=== PATIENT | female | born 1975 | race Caucasian/White ===

== ENCOUNTER → 2019-09-19 14:51 | Outpatient (CLI) | payer OTHER, SELFPAY ==
--- NOTE | 2019-09-19 15:05 | XR_ITS ---
PROCEDURE: XR HIP RT 2-3V W/PELVIS CLINICAL INDICATION: BILAT HIP PAIN Right hip pain COMPARISON: No exams were available for comparison FINDINGS: No fracture or dislocation is evident. No significant degenerative change. No lytic or blastic change. Unremarkable soft tissues. IMPRESSION: Negative right hip Dictated by: Jeff Garcia MD 09/19/2019 15:32 Electronically signed by eJff Garcia MD in [place] 09/19/2019 15:32
--- NOTE | 2019-09-19 15:05 | XR_ITS ---
PROCEDURE: XR HIP LT 2-3V W/PELVIS CLINICAL INDICATION: BILAT HIP PAIN Left hip pain COMPARISON: No exams were available for comparison FINDINGS: No fracture or dislocation is evident. No significant degenerative change. No lytic or blastic change. Unremarkable soft tissues. IMPRESSION: Negative left hip Dictated by: Jeff Garcia MD 09/19/2019 15:47 Electronically signed by Jeff Garcia MD in [place] 09/19/2019 15:47
== END ==
PROVIDERS: PCP Internal Medicine Adolescent Medicine; Visit Provider Internal Medicine Adolescent Medicine
DX: M25.552 Pain in left hip (principal); M25.551 Pain in right hip
CPT/HCPCS: 73502

== ENCOUNTER → 2019-09-21 11:46 | Outpatient (CLI) | payer OTHER, SELFPAY ==
[2019-09-21 12:08] LABS: Basophils % 0.4 % (0.1-2.0); Eosinophils # 0.2 K/mm3 (0.0-0.4); Eosinophils % 2.8 % (0.1-12.0); Hematocrit 43.4 % (37.0-47.0); Hemoglobin 13.6 g/dL (12.2-16.2); Lymphocytes # 1.7 K/mm3 (0.7-4.5); Lymphocytes % 21.2 % (10-50); Mean Corpuscular HGB Conc 31.2 g/dL (31.8-35.4); Mean Corpuscular Hemoglobin 29.3 pg (27.0-31.2); Mean Corpuscular Volume 93.9 fl (81-99); Mean Platelet Volume 8.5 fl (7.4-10.4); Monocytes # 0.4 K/mm3 (0.1-1.0); Monocytes % 5.5 % (1.7-9.3); Neutrophils # 5.5 K/mm3 (1.8-7.8); Neutrophils % 70.2 % (37.0-80.0); Platelet Count 246 K/mm3 (142-424); Red Blood Count 4.63 M/mm3 (4.20-5.40); Red Cell Distribution Width 13.4 % (11.5-17.5); White Blood Count 7.8 K/mm3 (4.8-10.8)
[2019-09-21 12:27] LABS: Alanine Aminotransferase 16 U/L (12-78); Albumin Level 3.7 gm/dL (3.4-5.0); Albumin/Globulin Ratio 1.2 (1.1-1.8); Alkaline Phosphatase 80 U/L (46-116); Anion Gap 11.2 mEq/L (5-15); Aspartate Amino Transferase 17 U/L (15-37); Bilirubin,Total 0.6 mg/dL (0.2-1.0); Blood Urea Nitrogen 6 mg/dL (7-18); Calcium 8.6 mg/dL (8.5-10.1); Carbon Dioxide 28 mmol/L (21.0-32.0); Chloride 105 mmol/L (98-107); Chol/HDL Ratio 2.2 (1-3.5); Cholesterol 145 mg/dL (140-200); Creatinine,Serum 0.77 mg/dL (0.55-1.02); Estimated Glomerular Filt Rate 83 ml/min (>60); GFR (African American) 100 ML/MIN (>60); Glucose 93 mg/dL (74-106); HDL Cholesterol 67 mg/dL (29-89); LDL Cholesterol 66 mg/dL (0-130); Potassium 4.2 mmoL/L (3.5-5.1); Sodium 140 mmol/L (136-145); Thyroid Stimulating Hormone 0.62 uIU/ml (0.358-3.740); Total Protein,Serum 6.7 gm/dL (6.4-8.2); Triglycerides 59 mg/dL (30-200); VLDL Cholesterol 12 mg/dL (0-40)
[2019-09-21 12:34] LABS: Erythrocyte Sedimentation Rate 7 mm/hr (0-20)
[2019-09-26 12:08] LABS: Anti-Centromere B Antibodies <0.2 AI (0.0-0.9); Anti-Jo-1 <0.2 AI (0.0-0.9); Anti-Smith Antibody <0.2 AI (0.0-0.9); Antichromatin Antibodies <0.2 AI (0.0-0.9); Antiscleroderma-70 Antibodies <0.2 AI (0.0-0.9); RNP Antibodies 0.3 AI (0.0-0.9); Sjogren's Anti-SS-A <0.2 AI (0.0-0.9); Sjogren's Anti-SS-B <0.2 AI (0.0-0.9)
[2019-09-28 17:36] LABS: Anti-DNA (DS) Ab Qn <1 IU/mL (0-9)
== END ==
PROVIDERS: Visit Provider Internal Medicine Adolescent Medicine
DX: Z00.00 Encounter for general adult medical examination without abnormal findings (principal); M25.552 Pain in left hip; M25.551 Pain in right hip
CPT/HCPCS: 36415; 80053; 80061; 84443; 85025; 85651; 86038; 86225; 86235

== ENCOUNTER → 2020-06-15 10:57 | Outpatient (CLI) | payer OTHER, SELFPAY | PROVIDERS: PCP Internal Medicine Adolescent Medicine; Visit Provider Internal Medicine Adolescent Medicine | DX: Z03.818 Encounter for observation for suspected exposure to other biological agents ruled out (principal) | CPT/HCPCS: U0003 ==

== ENCOUNTER → 2020-08-08 15:40 | Outpatient (CLI) | payer OTHER, SELFPAY ==
[2020-08-08 16:20] LABS: Basophils # 0.1 K/mm3 (0-0.2); Basophils % 0.6 % (0.1-2.0); Eosinophils # 0.3 K/mm3 (0.0-0.4); Eosinophils % 3.6 % (0.1-12.0); Hemoglobin 14.7 g/dL (12.2-16.2); Lymphocytes # 2.1 K/mm3 (0.7-4.5); Lymphocytes % 24.8 % (10-50); Mean Corpuscular HGB Conc 31.9 g/dL (31.8-35.4); Mean Corpuscular Hemoglobin 29.9 pg (27.0-31.2); Mean Corpuscular Volume 93.7 fl (81-99); Mean Platelet Volume 8.1 fl (7.4-10.4); Monocytes # 0.4 K/mm3 (0.1-1.0); Neutrophils # 5.6 K/mm3 (1.8-7.8); Platelet Count 245 K/mm3 (142-424); Red Blood Count 4.91 M/mm3 (4.20-5.40); Red Cell Distribution Width 13.5 % (11.5-17.5); White Blood Count 8.5 K/mm3 (4.8-10.8)
[2020-08-08 17:17] LABS: Alanine Aminotransferase 16 U/L (12-78); Albumin Level 4.2 g/dl (3.5-5.0); Albumin/Globulin Ratio 1.6 (1.1-1.8); Alkaline Phosphatase 75 U/L (38-126); Anion Gap 9.1 mEq/L (5-15); Aspartate Amino Transferase 24 U/L (14-36); Bilirubin,Total 0.7 mg/dl (0.2-1.3); Blood Urea Nitrogen 10 mg/dl (7-17); Calcium 9.3 mg/dl (8.4-10.2); Carbon Dioxide 28 mmol/L (22.0-30.0); Chloride 105 mmol/L (98-107); Estimated Glomerular Filt Rate 79 ml/min (>60); GFR (African American) 95 ML/MIN (>60); Globulin 2.6 g/dL (1.3-3.2); Glucose 81 mg/dl (74-100); Potassium 4.1 mmoL/L (3.5-5.1); Sodium 138 mmol/L (136-145); Total Protein,Serum 6.8 g/dl (6.3-8.2)
[2020-08-08 17:46] LABS: Thyroid Stimulating Hormone 0.69 uIU/mL (0.465-4.68)
== END ==
PROVIDERS: Visit Provider Internal Medicine Adolescent Medicine
DX: R53.82 Chronic fatigue, unspecified (principal)
CPT/HCPCS: 36415; 80053; 84443; 85025

== ENCOUNTER → 2020-09-26 14:12 | Outpatient (CLI) | payer OTHER, SELFPAY ==
--- NOTE | 2020-09-26 14:18 | XR_ITS ---
PROCEDURE: XR WRIST RT MIN 3V CLINICAL INDICATION: CARPAL TUNNEL SYNDROME OF RT WRIST COMPARISON: No exams were available for comparison FINDINGS: No fracture or dislocation. No lytic or blastic change. There is normal mineralization. The joint spaces are well-preserved. No significant degenerative/arthritic changes. No erosive changes evident. Other findings:None. IMPRESSION: Negative right wrist Dictated by: Jeff Garcia MD 09/26/2020 15:13 Jeff Garcia MD in [place] 09/26/2020 15:13
== END ==
PROVIDERS: PCP Internal Medicine Adolescent Medicine; Visit Provider Internal Medicine Adolescent Medicine
DX: G56.01 Carpal tunnel syndrome, right upper limb (principal)
CPT/HCPCS: 73110

== ENCOUNTER → 2021-01-28 12:55 | Outpatient (CLI) | payer OTHER, SELFPAY ==
--- NOTE | 2021-01-28 13:02 | MR_ITS ---
PROCEDURE: MR HEAD/BRAIN WO/W CON CLINICAL INDICATION: question regarding seizures Possible seizures, absent seizures Headaches COMPARISON: No exams were available for comparison TECHNIQUE: Routine multiplanar multi echo sequences are performed without gadolinium enhancement. In addition to the normal sequences, sagittal and axial DIR images were obtained FINDINGS: No midline shift, mass effect, intracranial hemorrhage, or hydrocephalus is evident. The cerebellopontine angles, cerebellum, midbrain, and brainstem have an unremarkable appearance. Unremarkable T2 white matter. No enhancing lesions. Unremarkable appearing hippocampal gyri. Temporal horns symmetric. The pituitary, optic chiasm, and corpus callosum have an unremarkable appearance as does the craniocervical junction. Unremarkable DIR images. No T2 white matter hyperintensities apparent. The upper cervical cord has an unremarkable appearance. There is a small cystic area along the dorsal aspect of the superior colliculus region slightly toward the right measuring approximately 9 by 6 mm. This may merely represent some asymmetry in the quadrigeminal cistern at this area versus a small arachnoid cyst. There is no abnormal enhancement or mass effect. No mastoid effusion or sinus air-fluid level. IMPRESSION: Essentially negative MRI of the brain without and with contrast. Small asymmetric area of CSF in the tectal region superiorly and toward the right and could be due to a small arachnoid cyst versus asymmetry in the quadrigeminal cistern. Dictated by: Jeff Garcia MD 01/28/2021 15:31 Jeff Garcia MD in [place] 01/28/2021 15:31
== END ==
PROVIDERS: PCP Internal Medicine Adolescent Medicine; Visit Provider Specialist
DX: R40.4 Transient alteration of awareness (principal)
CPT/HCPCS: 70553; A9576

== ENCOUNTER → 2021-01-30 10:23 | Outpatient (CLI) | payer OTHER, SELFPAY | PROVIDERS: PCP Internal Medicine Adolescent Medicine; Visit Provider Specialist | DX: R40.4 Transient alteration of awareness (principal) | CPT/HCPCS: 95819 ==

== ENCOUNTER → 2021-06-18 14:24 | Outpatient (CLI) | payer OTHER, SELFPAY | PROVIDERS: PCP Internal Medicine Adolescent Medicine; Visit Provider Nurse Practitioner | DX: Z20.822 Contact with and (suspected) exposure to COVID-19 (principal); U07.1 COVID-19 | CPT/HCPCS: C9803; U0003; U0005 ==

== ENCOUNTER 2023-03-31 09:25 | Day surgery (SDC) | payer OTHER, SELFPAY ==
--- NOTE | 2023-03-31 09:39 | P.PNANES_ITS ---
[facility] Disclaimer: The information contained in this section may have been updated after the patient was seen, as this information can be updated by other users. Social History Smoking Status: Current every day smoker tobacco type: cigarettes alcohol intake: never substance use type: denies use current occupational status: employed Travel in the last 8 weeks: None household members: children housing: house [facility] Anesthesia Checklist Patient Identification Patient Identification: Arm Band and Verbal (Name & ) Structural Data Admitted From: Home Planned Operative Procedure/s: colonoscopy Consent for Planned Operative Procedure(s) Verified: Yes Verified Documents: Surgical Consent NPO Status Verified Time NPO: 00:00 Additional verifications Patient : No Previous Colonoscopy: No Airway Assessment C-Spine Mobility Assessed: Yes TMJ Mobility Assessed: Yes Dentition: Partials Neurological Assessment Level of Consciousness: Awake and Alert Hx Seizures: No Anesthesia Plan Anesthesia Risk discussed: Yes ASA Class: I Anesthesia Type: IV sedation
[2023-03-31 09:43] VITALS: BP 127/61; PULSE 80; RESP 18; TEMP 36.2; O2SAT 96
[2023-03-31 10:06] LABS: Urine Pregnancy, HCG Qual. Negative (Negative)
[2023-03-31 10:09] VITALS: O2SAT 96
[2023-03-31 10:56] VITALS: BP 85/50; PULSE 78; RESP 18; TEMP 36.6; O2SAT 99
--- NOTE | 2023-03-31 10:57 | HMH.SCOPE ---
Procedure: Date: 03/31/23 Patient Date of :: 1975 Procedure Performed:: Colonoscopy with polypectomy Indications:: Screening Performing Provider:: Pal Lagos MD Referring Provider:: . Sedation:: Monitored anesthesia care Procedure:: After informed consent was obtained the patient was taken to the endoscopy suite. Sedation ensued after the patient was transferred to the left lateral decubitus position. Pulse, blood pressure, and oxygen saturation were monitored throughout the procedure. Digital rectal exam revealed no significant abnormality. The colonoscope was placed in position. The entire colon was evaluated. The colonoscope was carefully removed and the patient was transferred to recovery in stable condition. Please see findings and specimens below for detail. Findings:: Bowel preparation fair to moderate Fairly significant spasticity/lack of relaxation Polyp at 15 cm Specimens:: Polyp at 15 cm (cold snare) Recommendations:: Timing of repeat colonoscopy is pending pathology but will likely be around 3 years secondary to slightly-limiting bowel preparation and spasticity/lack of relaxation. Complications:: No immediate Estimated blood obtained (mL): 1 Colonoscopy Component Colonoscopy Component Was a colonoscopy performed during today's procedure?: Yes Recommended follow up colonoscopy of at least 10 years?: No If no, follow up colonoscopy recommended in ___ years?: 3 Reason for not recommending >/= 10 yr follow-up interval?: Spasticity; polyp
[2023-03-31 11:10] VITALS: BP 83/49; PULSE 76; RESP 18; O2SAT 99
[2023-03-31 11:26] VITALS: BP 110/63; PULSE 72; RESP 18; O2SAT 98
== END 2023-03-31 11:26 | disposition home or self-care (01) ==
PROVIDERS: PCP Internal Medicine Adolescent Medicine; Visit Provider Surgery
PROC: 0DJD8ZZ Inspection of Lower Intestinal Tract, Via Natural or Artificial Opening Endoscopic (ICD-10-PCS; CPT 45385; principal; 2023-03-31 10:30)
DX: Z12.11 Encounter for screening for malignant neoplasm of colon (principal); K63.5 Polyp of colon
CPT/HCPCS: 45385; 81025; J2704

== ENCOUNTER → 2023-05-28 15:25 | Outpatient (CLI) | payer OTHER, SELFPAY ==
--- NOTE | 2023-05-28 15:34 | XR_ITS ---
FINAL REPORT CLINICAL HISTORY: LOW BACK PAIN FINDINGS: LUMBAR SPINE Five views demonstrate no acute fracture. The disc spaces are well preserved. There is minimal anterior osteophyte formation at L3-4. There is no malalignment. IMPRESSION: No acute process. Reviewed, Interpreted and Dictated by Allen Degroot MD Transcribed by Neida Cervantes Authenticated and . [facility]
== END ==
PROVIDERS: PCP Internal Medicine Adolescent Medicine; Visit Provider Physician Assistant
DX: M54.50 Low back pain, unspecified (principal)
CPT/HCPCS: 72110

== ENCOUNTER 2024-03-18 14:56 | Outpatient (CLI) | payer OTHER, SELFPAY | END 2024-03-18 23:59 | disposition home or self-care (01) | LOC: RT 14:57 | PROVIDERS: PCP Internal Medicine Adolescent Medicine; Visit Provider Internal Medicine Adolescent Medicine | DX: R00.2 Palpitations (principal) | CPT/HCPCS: 93225; 93226 ==

== ENCOUNTER 2024-04-21 09:14 | Outpatient (CLI) | payer OTHER, SELFPAY ==
--- NOTE | 2024-04-21 | CA_ITS ---
APPROVED REPORT EXAM: Comprehensive 2D, Doppler, and color-flow Echocardiogram [employer] Professor: Dolores Castrejon, RCS, RVS Ht: 5 ft 4 in Wt: 187lbs BSA: 1.90 BP: 104/60 mmHg Indications: CP, Smoker, Family H/o heart disease 2D Dimensions IVSd 0.89 cm LVEF (Visual) 53.20 % PWd 0.81 cm LA Volume 40.80 mL LVDd 4.68 cm LA Volume Index 21.50 mL/m2 (M/F) 16-34 LVDs 3.40 cm EF AP4 57.20 % Aortic Root 2.47 cm GL Strain -21.8 % Left Atrium 2.86 cm RVID Base (AP4) 3.05 cm (M/F) 2.5-4.1 LVOT 1.77 cm (M/F) 1.5-2.5 M-Mode Dimensions RVDd 2.99 cm (0.9-2.6) LVDd 4.68 cm (3.5-5.7) Ao Diam 2.74 cm (2.0-3.7) LVDs 3.77 cm (3.5-5.7) IVSd 0.78 cm (0.6-1.1) PWd 0.75 cm (0.6-1.1) EF (Teich) 53.10% EPSs 0.44 cm FS 27.47% EDV (Teich) 129.50 mL TAPSE 2.12 (<1.7) ESV (Teich) 60.80 mL LV Diastology E Decel Time 217 (160-240 msec) E/A Ratio 2.00 MED E' 15.3 (>= 7 cm/sec) MED A' 10.70 cm/s E'/MED E' Ratio 6.08 (<= 14) LAT E' 17.9 (>= 10 cm/sec) LAT A' 8.20 cm/s E/LAT E' Ratio 5.20 (<= 14) Aortic Valve LVOT Max 90.0 (70-110 cm/s) PRINCESS Index 0.91 cm2/m2 LVOT VTI 20.95 cm AoV Peak Real. 131.0 (50-130 cm/s) AO Mean GR. 3.50 (<5 mmHg) AO VTI 29.8 (18-25 cm) PRINCESS (VTI) 1.73 (2.5-4.5 cm2) Mitral Valve MV E Max Real. 93.0 (40-130 cm/s) MV A Velocity 47.0 (40-130 cm/s) E/A Ratio 2.00 MV Decel. Time 217 (160-240 ms) Tricuspid Valve TR P. Velocity 206.00 cm/s RAP Estimate 10.00 mmHg RVSP 26.90 mmHg Left Ventricle The left ventricle is normal size. The left ventricular systolic function is normal. The left ventricular ejection fraction is within the normal range. There is normal left ventricular wall thickness. There is normal LV segmental wall motion. The left ventricular diastolic function is normal. LVEF is 55%. Right Ventricle The right ventricle is normal size. The right ventricular systolic function is normal. Atria The left atrium size is normal. The right atrium size is normal. There is no Doppler evidence of interatrial shunt. Aortic Valve The aortic valve opens well. There is no aortic valvular stenosis. No aortic regurgitation is present. Mitral Valve The mitral valve is normal in structure. No evidence of mitral valve stenosis. Mild mitral regurgitation. Tricuspid Valve The tricuspid valve leaflets are thin and pliable. Mild tricuspid regurgitation. RVSP is normal. Pulmonic Valve The pulmonary valve is normal in structure. Trace pulmonic regurgitation. Great Vessels The aortic root is normal in size. The ascending aorta is not well visualized. IVC is normal in size and collapses >50% with inspiration. Pericardium There is no pericardial effusion. Other Information Study Quality: Fair Conclusion Normal biventricular systolic function. Mild MR, mild TR. Electronically signed by : Cleo Guardado MD 04/25/2024 05:20:23
[2024-04-21 09:29] VITALS: BMI 25.7
[2024-04-21 09:38] VITALS: BP 106/71; PULSE 73; RESP 18; TEMP 37.3; O2SAT 100
[2024-04-21] MEDS: METOPROLOL TARTRATE 50MG TABLET *IVABRADINE+METOPROLOL REGIMINE 75 MG PO (09:46)
[2024-04-21 09:51] LABS: Urine Pregnancy, HCG Qual. Negative (Negative)
[2024-04-21 09:57] LABS: Anion Gap 7.9 mEq/L (5-15); Blood Urea Nitrogen 8 mg/dl (7-17); Calcium 8.7 mg/dl (8.4-10.2); Carbon Dioxide 25 mmol/L (22.0-30.0); Chloride 107 mmol/L (98-107); Creatinine Clearance Estimated 108 mL/min (50-200); Estimated Glomerular Filt Rate 90 ml/min (>60); GFR (African American) 109 ML/MIN (>60); Glucose 91 mg/dl (74-100); Potassium 3.9 mmoL/L (3.5-5.1); Sodium 136 mmol/L (136-145)
[2024-04-21 10:55] VITALS: BP 98/63; PULSE 54; RESP 18; O2SAT 95
[2024-04-21 11:00] VITALS: BP 96/61; PULSE 46; RESP 18; O2SAT 98
[2024-04-21 11:05] VITALS: BP 87/48; PULSE 56; RESP 18; O2SAT 97
[2024-04-21] MEDS: 0.9 % SODIUM CHLORIDE 50 ML VIAL IV (11:10)
[2024-04-21] MEDS: IOPAMIDOL-370 (76%);100ML BOTTLE 85 ML IV (11:10)
[2024-04-21 11:15] VITALS: BP 114/70; PULSE 53; RESP 18; O2SAT 100
== END 2024-04-21 11:15 | disposition home or self-care (01) ==
PROVIDERS: PCP Internal Medicine Adolescent Medicine; Visit Provider Internal Medicine Adolescent Medicine
DX: I49.8 Other specified cardiac arrhythmias (principal); R07.9 Chest pain, unspecified
CPT/HCPCS: 75574; 80048; 81025; 93306; Q9967